=== PATIENT | female | born 1985 | race Two or more races ===

== ENCOUNTER 2019-01-06 12:00 | Inpatient (IN) | payer OTHER ==
[~2019-01-06] VITALS: Ht 170.2 cm; Wt 4.1 kg
[2019-01-08] MEDS ORDERED: PRENATAL 19 TA1 EAC1 PO (09:42)
== END 2019-01-10 11:44 | disposition home or self-care (01) | DRG 788 ==
LOC: EDSTATUS 12:00 → ADM 12:00 → OB/GYN 01-08 09:12 → O/R 01-08 09:12 → SURH 01-08 12:00 → OB/GYN 01-08 20:42
PROVIDERS: ADMIT Obstetrics & Gynecology
PROC: 4A1HXCZ Monitoring of Products of Conception, Cardiac Rate, External Approach (ICD-10-PCS; 2019-01-08)
PROC: 10D00Z1 Extraction of Products of Conception, Low, Open Approach (ICD-10-PCS; principal; 2019-01-08 18:15)
DX: O82 Encounter for cesarean delivery without indication (principal); Z3A.39 39 weeks gestation of pregnancy; Z37.0 Single live birth; Z30.2 Encounter for sterilization